=== PATIENT | female | born 1985 | race Two or more races ===

== ENCOUNTER 2016-08-22 16:08 | Emergency (ER) | payer BC ==
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
== END 2016-08-22 16:57 | disposition home or self-care (01) ==
LOC: SED 16:08
DX: S13.4XXA Sprain of ligaments of cervical spine, initial encounter (principal); S33.5XXA Sprain of ligaments of lumbar spine, initial encounter; V89.2XXA Person injured in unspecified motor-vehicle accident, traffic, initial encounter; Y92.410 Unspecified street and highway as the place of occurrence of the external cause
CPT/HCPCS: 72100; 99283